=== PATIENT | female | born 1990 | race Caucasian/White ===

== ENCOUNTER 2019-07-12 17:50 | Outpatient (CLI) | payer OTHER ==
[~2019-07-12] VITALS: Ht 167.6 cm; Wt 82.0 kg
[2019-07-12 18:08] VITALS: BP 116/68
[2019-07-12] MEDS ORDERED: PRENTAB9 PO (18:12)
--- NOTE | 2019-07-12 19:23 | IPNPDOC ---
Text Note Date of Service The patient was seen on 07/12/19. NOTE Triage Note Alicia is a 28yo with SIUP at approx 25wk presenting after a fall onto her backside around 11am today while shoveling snow. She wasn't too concerned after falling down except that later in the afternoon/evening she noticed slight red vaginal spotting twice when she wiped. She has had slight cramping, but she notes that is pretty normal for her. No LOF. Feels baby moving. 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 Cervix visually cl/th/high. Cat I FHRT with bl 130, +accels, -decels, mod rico [place]: no ctx or uterine activity Assessment: Alicia is a 28yo with SIUP at approx 25wk presenting after a fall onto her backside around 11am with slight spotting, NO vaginal bleeding seen on exam, no ctx, reassuring assessment and normal vitals. No e/o placental abruption. Plan: -discharge home -keep next routine OB appt -tylenol/warm bath prn -return precautions discussed MD DANIEL Gooden,Alley, I+O VSAlley I+O Vital Signs Date Time Temp Pulse Resp B/P (MAP) Pulse Ox O2 Delivery O2 Flow Rate FiO2 07/12/19 18:08 97.8 82 16 116/68 (84) Yola Mohan MD Jul 12, 2019 19:22
== END 2019-07-12 19:15 | disposition home or self-care (01) ==
LOC: M LDO 17:50
PROVIDERS: ATTEND Obstetrics & Gynecology
DX: O9A.212 Injury, poisoning and certain other consequences of external causes complicating pregnancy, second trimester (principal); W00.0XXA Fall on same level due to ice and snow, initial encounter; Y92.9 Unspecified place or not applicable; Y93.H1 Activity, digging, shoveling and raking; Y99.9 Unspecified external cause status; Z3A.25 25 weeks gestation of pregnancy
CPT/HCPCS: 59025; G0378; G0463

== ENCOUNTER → 2019-08-07 | Outpatient (CLI) | payer OTHER ==
[~2019-08-07] MED LIST: PRENTAB9 PO
== END ==
LOC: M LABSMTC 10:09
PROVIDERS: ATTEND Family Medicine
DX: Z11.59 Encounter for screening for other viral diseases (principal); Z20.828 Contact with and (suspected) exposure to other viral communicable diseases
CPT/HCPCS: 87502; U0002

== ENCOUNTER 2019-10-15 07:04 | Inpatient (IN) | payer OTHER ==
[2019-10-15] VITALS (40 sets, daily range): BP systolic 88–124; BP diastolic 46–75
[~2019-10-15] VITALS: Ht 167.6 cm; Wt 94.0 kg
[2019-10-15] MEDS ORDERED: LR 1,000 ML IV SCH (08:32)
[2019-10-15] MEDS ORDERED: LACTATED RINGER'S 1000 ML IV STA (08:32)
[2019-10-15] MEDS ORDERED: BUTORPHANOL 2 MG/ML INJ (J0595) IV PRN (08:45)
[2019-10-15] MEDS ORDERED: PROMETHAZINE INJ 25 MG/ML VIAL (J2550) IV PRN (08:45)
[2019-10-15] MEDS ORDERED: ACETAMINOPHEN 500 MG TAB PO PRN (08:45)
[2019-10-15] MEDS ORDERED: SIMETHICONE 80 MG CHEW TAB PO PRN (08:45)
[2019-10-15] MEDS ORDERED: diphenhydrAMINE 25MG CAP PO PRN (08:45)
[2019-10-15] MEDS ORDERED: MOM 30ML SUSPENSION UDC PO PRN (08:45)
[2019-10-15] MEDS ORDERED: CALCIUM CARBONATE 500 MG CHEW U/D PO PRN (08:45)
--- NOTE | 2019-10-15 08:47 | HPEPDOC ---
Obstetrical History & Physical General Date of Admission Oct 15, 2019 at 08:31 History of Present Illness Patient is a 29yo at 38.6wks by LMP c/w 10wk US. C/o gush of clear fluid around 0500. Ctx afterwards q4min. Good movement. No headaches or visual changes. Chief Complaint: Contractions, term, LOF, term Information Provided By: Patient : 2 Term: 1 Livin Care Care: Good Care Dating Final EDC: Oct 23, 2019 Final EDC by: LMP Antepartum Course Height (inches): 66 Pre- weight (lbs.): 149 Admission Weight (lbs.): 210 Change in Weight (lbs.): 60 Past Medical History Past Obstetrical History : Past Obstetrical History: Multigravida Type of Delivery: Spontaneous Vaginal Del. 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 Past Medical History Medical History none Surgical History: [place] teeth Family History Significant Family History: No pertinent family hx Social History Marital Status: Family situation: Spouse/partner home Psychosocial History: No pertinent psych hx * Smoker: non-smoker Alcohol: Denies Drugs: denies Abuse Violence Screening Have you been hit/kicked/slapp: No Have you been sexually assault: No Imunizations Tdap status: declined Influenza Status: current Allergies Coded Allergies: No Known Allergies (Verified Allergy, Unknown, 07/12/19) Medications Scheduled No.137/Iron/Folic Acd ( Vitamin Tablet) 1 Each Tablet, 1 TAB PO DAILY Physical Examination Physical Examination GENERAL: Alert and oriented times three. BREAST: . ABDOMEN: Gravid and non-tender to touch. FETUS: Is vertex (VTX) by sterile vaginal examination (SVE), fetus is 4000gm by Delgado. HEART RATE: Regular rate and rhythm. LUNGS: Clear to auscultation (CTA). EXTREMITIES: No edema. Laboratory Data Urine Culture: No Growth Pertinent Laboratoy Data Blood Type: O+ RBC Antibody Screen: Negative HIV: Negative Hepatitis B: Negative Rapid Plasma Reagin: Nonreactive Rubella: Immune Varicella: Immune Chlamydia/Gonorrhea: Negative Group B Streptococcus: Negative Cystic Fibrosis: Negative Glucose Tolerance Test: 128 Anatomy Ultrasound Ultrasound Date: Jun 14, 2019 Placenta Location: Posterior Normal Anatomy: Yes Placenta Previa: No Estimated Weight (grams): 394 Steroid Therapy Steroid Therapy: No Vaginal Examination Dilation: 4 cm Effacement: 80% Station: -2 Cervical Consistency: Soft Cervical Position: Posterior Presentation: Cephalic presentation Assessment Heart Rate (FHR): 130 Variability: Moderate Accelerations: Positive Decelerations: None Tocometer Contractions: Yes Frequency: regular, every 1-3 min. Multi-drug resistant Organism: No history of MDRO Assessment/Plan Assessment Patient is a 29yo at 38.6wks by LMP c/w 10wk US. Admit for SROM and expect delivery by . Pain management per patient preference, which was discussed with her. I discussed risks of with patient of failure with section, distress, bleeding, infection, , vaginal or perineal or neighboring organ tear. Currently, fetus is reassuring. GBS is negative, no need for antibiotics. 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 Diet: clears. Group B Streptococcus (GBS) negative. Labs and intravenous (IV) per unit protocol. Counseled on Pitocin augmentation of labor. Lactated Ringers (LR): Bolus 500 mL, then at 125 mL/hr. Anticipate normal spontaneous delivery (). C-S as appropriate. Pain mgt per patient Ellen Vinson MD Oct 15, 2019 08:47
[2019-10-15 09:07] LABS: BASO % 0.4 % (0.0-1.0); EOS # 0.1 10^3/uL (0.0-0.5); EOS % 0.7 % (0.0-3.0); HEMATOCRIT 38.6 % (36.0-47.0); LYMPH % 10.4 % (24.0-44.0); MEAN CORPUSCULAR HEMOGLOBIN 30.4 pg (27.0-33.0); MEAN CORPUSCULAR HGB CONC 33.7 g/dl (32.0-36.5); MEAN CORPUSCULAR VOLUME 90.4 fl (80.0-96.0); MONO # 0.7 10^3/uL (0.0-0.8); MONO % 7.2 % (0.0-5.0); NEUTROPHILS # 7.7 10^3/uL (1.5-8.5); NEUTROPHILS % 79.9 % (36.0-66.0); PLATELET COUNT, AUTOMATED 167 10^3/uL (150-450); RED BLOOD COUNT 4.27 10^6/uL (4.00-5.40); WHITE BLOOD COUNT 9.7 10^3/uL (4.0-10.0)
[2019-10-15] MEDS ORDERED: ONDANSETRON 4MG/2ML VIAL IV PRN (12:45)
[2019-10-15] MEDS ORDERED: EPIDURAL/PCA KEYS XX PRN (12:45)
[2019-10-15] MEDS ORDERED: NALOXONE INJ 0.4MG/1ML VIAL (J2310 PER 1MG) IV PRN (12:45)
[2019-10-15] MEDS ORDERED: LACTATED RINGER'S 1000 ML IV PRN (12:45)
[2019-10-15] MEDS ORDERED: FENTANYL/ROPIVACAINE/NACL BAG 100 ML EPIDURAL SCH (12:45)
[2019-10-15] MEDS ORDERED: diphenhydrAMINE 50MG/ML VIAL (J1200) IV PRN (12:45)
[2019-10-15] MEDS ORDERED: EPIDURAL COMMENT XX SCH (12:45)
[2019-10-15] MEDS ORDERED: REFRIGERATOR IV KEYS XX PRN (12:45)
[2019-10-15] MEDS: ePHEDrine SULFATE 25 MG/5 ML(5MG/ML) SYRINGE IV PRN ×3 (12:46→13:15)
[2019-10-15] MEDS ORDERED: OXYTOCIN 30 UNITS IN 0.9% NaCl 500ML IV BAG (J2590) As Ordered ONE (13:44)
[2019-10-15] MEDS ORDERED: OXYTOCIN DRIP 30 UNITS in IV 1 EA IV SCH (14:40)
[2019-10-15] MEDS ORDERED: ANUSOL HC CREAM 30GM TOP PRN (14:45)
[2019-10-15] MEDS ORDERED: DIBUCAINE 1% OINTMENT 30GM TOP PRN (14:45)
[2019-10-15] MEDS ORDERED: IBUPROFEN 800 MG TAB PO PRN (14:45)
[2019-10-15] MEDS ORDERED: METHYLERGONOVINE MALEATE 0.2 MG TAB PO PRN (14:45)
--- NOTE | 2019-10-15 14:45 | DNPDOC ---
[facility] Delivery Note Delivery Note DATE OF DELIVERY: 10/15/2019 PREDELIVERY DIAGNOSIS: 38-6/7 weeks' gestation and labor. POST DELIVERY DIAGNOSIS: Delivered. PROCEDURE: Spontaneous vaginal delivery. COMMERCIAL ARTIST: Dr. Vinson ANESTHESIA: Epidural. ESTIMATED BLOOD LOSS: 250 mL. FINDINGS: 9 pound 0 ounce 4070gm girl infant, Score 9/9, nuchal cord times 0. DELIVERY SUMMARY: Patient is a 29-year-old 2 now para 1 who was admitted to labor and delivery for SROM with active labor for 4hours. Patient SROM clear around 0545. Baby girl head was delivered without difficulty over intact perineum in KALINA position at 1403. The nose and mouth were bulb suctioned. No nuchal cord was noted. The shoulders were then delivered without difficulty. was handed on mother's belly. Cord was then clamped x2 and cut after pul sation. Pitocin bolus was started. Perineum and vagina was inspected and found to have no laceration. The placenta was then delivered at 1408 spontaneously intact. Cord had a 3 vessel cord. EBL was 250mL. The vagina and perineum were reinspected and no further lacerations were found and hemostasis was good. Fundus was firm. Patient tolerated delivery well. Ellen Vinson MD Oct 15, 2019 14:45
[2019-10-15] MEDS ORDERED: SLF 3 ML SYR IV PRN (17:00)
[2019-10-15] MEDS: DOCUSATE SODIUM 100 MG CAP PO SCH (22:54)
[2019-10-15] MEDS: SLF 3 ML SYR IV SCH (22:55)
[2019-10-16 06:00] VITALS: BP 116/68
[2019-10-16] MEDS: SLF 3 ML SYR IV SCH ×2 (06:00→14:00)
[2019-10-16] MEDS: DOCUSATE SODIUM 100 MG CAP PO SCH ×2 (07:39→21:13)
--- NOTE | 2019-10-16 07:52 | IPNPDOC ---
Progress Note Date of Service: Oct 16, 2019 Day#: 1 Progress Note SUBJECT: Patient is a 29-year-old 2 now Para 2 status post uncomplicated spontaneous vaginal delivery without a vaginal laceration and repair, doing well day # 1. She has been ambulating, voiding spontaneously without issue and tolerating regular diet. Breast feeding without issue. Reports lochia is lik e a normal period. Patient is ambulating well. Reports some cramping with . Denies any pain. OBJECTIVE: VITAL SIGNS: Within normal limits, afebrile. GENERAL: No acute distress HEENT: MMM BREAST: Nontender, no erythema CARDIOVASCULAR EXAMINATION: RRR RESPIRATORY EXAMINATION: Bilaterally clear ABDOMINAL EXAMINATION: Soft, appropriate tenderness, nondistended, fundus -2 PERINEUM: Intact, minimal lochia EXTREMITIES: no edema, nontender ASSESSMENT: Patient is a 29-year-old 2 now Para 2 status post uncomplicated spontaneous vaginal delivery without a vaginal laceration and repair, doing well day # 1. Vitals within normal limits, afebrile, hemodynamically stable with no evidence of infection. PLAN: 1. Continue care. 2. Tylenol and Motrin for pain. 3. Encourage breast feeding and ambulation. VS, I&O, 24H, Fishbone Vital Signs/I&O Vital Signs Date Time Temp Pulse Resp B/P (MAP) Pulse Ox O2 Delivery O2 Flow Rate FiO2 10/15/19 09:04 80 18 118/69 (85) 10/15/19 07:27 97.5 Laboratory Data 24H LABS Laboratory Tests 2 10/15/19 08:40: Serology Scanned Report Hepatitis B Testing 10/15/19 08:51: Immature Granulocyte % (Auto) 1.4, Neutrophils (%) (Auto) 79.9H, Lymphocytes (%) (Auto) 10.4L, Monocytes (%) (Auto) 7.2H, Eosinophils (%) (Auto) 0.7, Basophils (%) (Auto) 0.4, Neutrophils # (Auto) 7.7, Lymphocytes # (Auto) 1.0L, Monocytes # (Auto) 0.7, Eosinophils # (Auto) 0.1, Basophils # (Auto) 0.0, Nucleated Red Blood Cells % (auto) 0.0 CBC/BMP Laboratory Tests 10/15/19 08:51 Ellen Vinson MD Oct 15, 2019 14:50
[2019-10-16] MEDS ORDERED: PRENATAL VITAMINS CHEWABLE TABLET PO SCH (09:00)
[2019-10-16 18:00] VITALS: BP 111/69
[2019-10-17 06:00] VITALS: BP 127/69
--- NOTE | 2019-10-17 07:45 | IPNPDOC ---
Progress Note Date of Service: Oct 17, 2019 Day#: 2 Progress Note SUBJECT: patient is a 29 yo S/P PPD#2. Patient without concerns today. She has been ambulating, voiding spontaneously without issue and tolerating regular diet. Breast feeding without issue. Reports lochia is like a normal period. plans on breast feeding. plans on norqd for contraceptive. OBJECTIVE: VITAL SIGNS: Within normal limits, afebrile. NAD, laying in bed Abdomen: Fundus firm at U-2. Soft, NTTP. LE: no edema/erythema/tenderness A/P patient is ppd #2, doing well. routine care. encourage bf and ambulation. contraceptive counseling. d/c home today. VS, I&O, 24H, Fishbone Vital Signs/I&O Vital Signs Date Time Temp Pulse Resp B/P (MAP) Pulse Ox O2 Delivery O2 Flow Rate FiO2 10/16/19 18:00 98.0 77 18 111/69 (83) 99 Room Air ERNST GARCIA DO Oct 17, 2019 02:24
--- NOTE | 2019-10-17 07:46 | OBDS ---
[facility] Obstetrical Discharge Sum. Obstetrical Discharge Summary : 2 Term: 2 Livin VDRL: Non-Reactive Rh: Positive Rubella: Immune Labor Active from SROM Delivery uncomplicated Infant Sex: Female Infant Weight: grams (4070) Anesthesia: Regional Anesthesia Episiotomy None A/P, Post Course List any complications Admission diagnosis: SROM, Term Discharge diagnosis: Condition at Discharge: Stable Discharge Instructions: Home Activity: Ad franny with pelvic rest Diet: Regular Medications: filled at [facility] Follow-up: 6-8wks HOSPITAL COURSE: Patient was admitted for SROM. She went into active labor without augmentation and had an uncomplicated . No lacerations. Her course uncomplicated and patient discharged home on day #2. Ellen Vinson MD Oct 15, 2019 14:48 ERNST GARCIA DO Oct 17, 2019 07:46
== END 2019-10-17 12:35 | disposition home or self-care (01) | DRG 807 ==
LOC: M LDO 07:04 → M LDI 08:31 → M OBS 15:55
PROVIDERS: ADMIT Obstetrics & Gynecology; ATTEND Obstetrics & Gynecology
PROC: 10E0XZZ Delivery of Products of Conception, External Approach (ICD-10-PCS; principal; 2019-10-15)
DX: O80 Encounter for full-term uncomplicated delivery (principal); Z37.0 Single live birth; Z3A.38 38 weeks gestation of pregnancy